=== PATIENT | male | born 1975 | race Caucasian/White ===

== ENCOUNTER 2022-08-15 16:59 | Emergency (ER) | payer OTHER ==
[2022-08-15 17:04] VITALS: TEMP 98
[2022-08-15] MEDS ORDERED: KETOROLAC 15 MG/ML 1 ML VIAL IM STA (17:54)
[2022-08-15] MEDS ORDERED: methocarbamoL 750 MG TAB PO STA (17:54)
[2022-08-15] MEDS ORDERED: HYDROcodone/APAP 5-325MG 1 EACH TAB PO STA (17:54)
[2022-08-15] MEDS ORDERED: LIDOCAINE 5% PATCH TOPICAL STA (17:54)
--- NOTE | 2022-08-15 18:24 | ED ---
General Adult HPI - General Chief complaint: Back Pain/Injury Stated complaint: back pain Time Seen by Provider: 08/15/22 17:45 Source: patient, RN notes reviewed, old records reviewed Mode of arrival: wheelchair Limitations: no limitations - History of Present Illness Initial comments: Patient is a 46-year-old male who presents emergency Department complaining of chronic back pain. Currently is at [facility] for substance abuse. 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 States he has not used since approximately August 03. States that since he stopped using, he has progressively had worsening of his chronic lower back pain. Denies any saddle anesthesias. Denies urinary or bowel incontinence or retention. Denies any new traumatic injuries. Has a history of chronic pain. Presents today for further evaluation and management. Is still able to ambulate. No paralysis or sensory deficits. Presents for further evaluation this time. Denies fevers, chest pain, abdominal pain, nausea, vomiting. - Related Data Previous Rx's Medication Instructions Recorded Lidocaine 5% Patch [Lidoderm 5% 1 patch TOPICAL DAILY PRN 7 Days 08/15/22 Patch] #7 patch methocarbamoL [Robaxin-750] 750 mg PO BID PRN 7 Days #14 tab 08/15/22 Allergies Allergy/AdvReac Type Severity Reaction Status Date / Time No Known Allergies Allergy Verified 08/15/22 17:04 Review of Systems ROS Statement: Those systems with pertinent positive or pertinent negative responses have been documented in the HPI. Review of Systems: CONST: Denies fever EYES: Denies blurry vision ENT: Denies nasal congestion C/V: Denies Chest pain RESP: Denies shortness of breath GI: Denies abdominal pain : Denies dysuria SKIN: Denies rash. MSK: Endorses acute on chronic back pain. NEURO: Denies headache ROS Other: All systems not noted in ROS Statement are negative. Past Medical History Past Medical History: Hyperlipidemia Past Surgical History: Unable to Obtain Smoking Status: Current every day smoker Past Drug Use History: Opiates, Prescription Drug Abuse General Exam - General Exam Comments Initial Comments: General: Appears in no acute distress. HEAD: Normal with no signs of head trauma. EYES: EOMI ENT: Hearing grossly intact, normal oropharynx. RESPIRATORY: Clear breath sounds bilaterally. No wheezes, rales, or rhonchi. C/V: Regular rate and rhythm. S1 and S2 auscultated, peripheral pulses 2+ and intact throughout. ABD: Abd is soft, nontender, nondistended EXT: Normal range of motion, no obvious deformity. No midline cervical, thoracic spinal tenderness palpation. No midline lumbar spinal tenderness palpation. Appears to be primarily tender in the left paraspinal muscles of the lumbar spine. SKIN: No rashes or lesions observed on exposed skin. NEURO: Alert and oriented x 4. Cranial nerves II-XII intact. No focal sensory or strength deficits. Limitations: no limitations Course Vital Signs 08/15/22 17:01 Temperature 98.0 F Pulse Rate 89 Respiratory 18 Rate Blood Pressure 170/92 O2 Sat by Pulse 99 Oximetry Medical Decision Making - Medical Decision Making Was pt. sent in by a medical professional or institution? @ -No Did you speak to anyone other than the patient for history? @ -No Did you review nursing and triage notes? @ -Yes. Agree. Were old charts reviewed? @ -Yes. Old radiological studies. Differential Diagnosis? @ -Differential Back Pain: Strain, zoster, cauda equina syndrome, epidural abscess, vertebral osteomyelitis, discitis, fracture, subluxation, disc herniation, DJD, spinal stenosis, dissection, AAA, pancreatitis, peptic ulcer disease, pyelonephritis, kidney stone, this is not meant to be an all-inclusive list. EKG interpreted by me (3pts min.)? @ -none X-rays interpreted by me (1pt min.)? @ -Yes. Lumbar spine x-ray reveals no acute traumatic injury, fracture, subluxation. CT interpreted by me (1pt min.)? @ -none U/S interpreted by me (1pt. min.)? @ -none What testing was considered but not performed? (CT, X-rays, U/S, labs)? Why? @None What meds were considered but not given? Why? @ -none Did you discuss the management of the patient with other professionals? @ -No Did you reconcile home meds? @ -none Was smoking cessation discussed for >3mins.? @ -none Was critical care preformed (if so, how long)? @ -none Were there social determinants of health that impacted care today? How? (Homelessness, low income, unemployed, alcoholism, drug addiction, transportation, low edu. Level, literacy, decrease access to med. care, fdc, rehab)? @ -Yes, drug addiction. Makes pain management difficult as he has a history of opiate abuse. Was there de-escalation of care discussed even if they declined? (Discuss DNR or withdrawal of care, Hospice)? @ -No What co-morbidities impacted this encounter? (DM, HTN, Smoking, COPD, CAD, Cancer, CVA, Hep., AIDS, mental health diagnosis, sleep apnea, morbid obesity)? @ -Chronic low back pain. Was patient admitted / discharged? @ - Based on patient's presentation and physical exam, patient presents complaining of acute on chronic back pain that has progressively gotten worse since he stopped taking illicit IV opiate medications. Currently is at rehab. Presents for pain control of his chronic pain. Denies any new trauma or injury. His no other acute symptoms at this time. No concern for cauda equina syndrome. No red flag signs. Vital signs within except for limits. States has not followed up with a physician in multiple years. I did offer him x-ray imaging of the lower spine which he accepted. We will provide him with analgesia medications as well. He was in agreement this plan. He received Robaxin, lidocaine patch, IM Toradol as well as [place]. Patient's lumbar spine x-ray as interpreted by me revealed no acute process. On reevaluation, patient's pain is improved. We discussed his results. He has no signs or symptoms of cauda equina syndrome. I believe it is safe for him to be discharged home at this time. He will be given a Tylenol 3 starter pack as well as paper prescriptions for lidocaine patches and Robaxin. He was in agreement with this plan. Strict return precautions were discussed. I informed him that he needs to establish a primary care provider so that he can obtain proper pain management. He was in agreement this plan. I will provide the patient with a prescription for Robaxin, lidocaine patch. I instructed the patient to follow up with their PCP in the next 1-3 days. I explained that the patient should return to the emergency department if they experience any worsening symptoms. Strict return precautions were discussed with the patient. The patient expressed understanding of these instructions. I answered all questions that the patient had. The patient was discharged home in good condition with their prescriptions and follow up information. Undiagnosed new problem with uncertain prognosis? @ -none Drug Therapy requiring intensive monitoring for toxicity (Heparin, Nitro, Insulin, Cardizem)? @ -none Were any procedures done? @ -none Diagnosis/symptom? @ -Acute on chronic lower back pain, history of IV opiate abuse. Acute, or Chronic, or Acute on Chronic? @ -Acute on chronic Uncomplicated (without systemic symptoms) or Complicated (systemic symptoms)? @ -Uncomplicated Side effects of treatment? @ -none Exacerbation, Progression, or Severe Exacerbation] @ -no Poses a threat to life or bodily function? @ -no Disposition Clinical Impression: Chronic lumbar pain Disposition: HOME SELF-CARE Condition: Good Instructions (If sedation given, give patient instructions): Chronic Pain (ED) Prescriptions: Lidocaine 5% Patch [Lidoderm 5% Patch] 1 patch TOPICAL DAILY PRN 7 Days #7 patch PRN Reason: Pain methocarbamoL [Robaxin-750] 750 mg PO BID PRN 7 Days #14 tab PRN Reason: Pain Is patient prescribed a controlled substance at d/c from ED?: No Referrals: None,Stated [Primary Care Provider] - 1-2 days Time of Disposition: 18:50
--- NOTE | 2022-08-15 18:35 | XR ---
EXAMINATION TYPE: XR lumbar spine 2 or 3V DATE OF EXAM: 08/15/2022 COMPARISON: NONE HISTORY: Back pain TECHNIQUE: 3 views FINDINGS: The lumbar vertebrae have normal alignment. Posterior elements are intact. No compression f racture. There is disc space narrowing at L5-S1 with spurring. Sacroiliac joints are intact. IMPRESSION: Negative lumbar spine exam. No fracture.
[2022-08-15] MEDS ORDERED: ACET/COD 300 MG/30 MG STARTER PACK 6 TAB BTL PO STA (18:57)
[2022-08-15 19:25] VITALS: BP 142/82; PULSE 81; RESP 16
== END 2022-08-15 19:25 | disposition home or self-care (01) ==
LOC: EC 16:59
DX: G89.29 Other chronic pain (principal); M54.50 Low back pain, unspecified; F17.200 Nicotine dependence, unspecified, uncomplicated; F11.90 Opioid use, unspecified, uncomplicated
CPT/HCPCS: 72100; 99284; 96372; J1885